=== PATIENT | female | born 1960 | race Caucasian/White ===

== ENCOUNTER 2023-08-06 17:45 | Emergency (ER) | payer OTHER, SELFPAY ==
[2023-08-06 18:02] VITALS: BP 130/76; PULSE 81; RESP 16; TEMP 36.9; O2SAT 100
--- NOTE | 2023-08-06 18:29 | ED.URI ---
HPI - URI/Sore Throat General Chief Complaint: Upper Respiratory Infection Stated Complaint: Sore Throat History of Present Illness HPI Narrative: Pt is a 49 y/o female, presents to with one month hx of sore throat, painful when swallowing, treated three weeks ago with Zithromax and steroids after she was negative for strep. She notes her throat pain improved briefly but returned a few days later. She denies associated rhinorrhea, post nasal drip or cough. She does endorse hx of GERD however, she does not feel this has caused her symptoms. She is requesting a COV and influenza screen in addition to strep testing today. Related Data Home Medications Medication Instructions Recorded Confirmed amlodipine 08/06/23 chlorthalidone 08/06/23 losartan 08/06/23 Allergies Allergy/AdvReac Type Severity Reaction Status Date / Time No Known Allergies Allergy Verified 08/06/23 18:02 Review of Systems Constitutional: Constitutional: Reports as per HPI and Reports no additional constitutional complaints ENT: Reports system reviewed and no additional complaints, except as documented and Reports as per HPI Exam Const: General: healthy appearing, no acute distress and alert Nutritional Appearance: obese Limitations: no limitations HENMT: Head: normal to inspection Ears: external ears normal and TM's normal bilaterally Face/Nose/Sinus: Normal external nose present and Normal nares present Face and sinus: normal facial exam Mouth: Yes Normal oral and palatal mucosa present and Yes lip normal Throat: uvula midline (mild erythema to uvula. no pharyngeal erythema or exudate. ) Eyes: Conjunctivae: conjunctivae normal Pupils: Equal, round and reactive pupils present EOM: EOMs intact bilaterally Neck: Neck: normal visual inspection, no lymphadenopathy and no meningeal signs Resp: Effort & Inspection: normal respiratory effort Auscultation: clear to auscultation bilaterally Cardio: Rate: regular rate Rhythm: regular rhythm Skin: General skin exam: normal color Rashes: no rashes Neuro: General: patient oriented x3, moves all extremities, no meningeal signs, no focal motor deficits and CN's II-XI intact bilaterally Cranial nerves: Yes Nystagmus not present Speech: normal speech Gait exam (Neuro): Normal gait present Extrem: General: normal to inspection Psych: Mental Status: mental status grossly normal Affect: normal affect Course Course Emergency Course: STREP, INFLUENZA AND COV screenings ordered. Negative for all. Exam is benign, suspect GERD may be cause of persistent sore throat. Will treat with Protonix, FU with ENT and/or PCP/GI if symptoms are not improving in one week Level of Care: Express Care Visit ([id number]) Vital Signs Vital signs: Vital Signs Temperature 36.9 C 08/06/23 18:02 Pulse Rate 81 08/06/23 18:02 Respiratory Rate 16 08/06/23 18:02 Blood Pressure 130/76 08/06/23 18:02 Pulse Oximetry 100 08/06/23 18:02 Oxygen Delivery Room Air 08/06/23 18:02 Temperature 36.9 C 08/06/23 18:02 Pulse Rate 81 08/06/23 18:02 Respiratory Rate 16 08/06/23 18:02 Blood Pressure 130/76 08/06/23 18:02 Pulse Oximetry 100 08/06/23 18:02 Oxygen Delivery Room Air 08/06/23 18:02 MDM - URI/Sore Throat MDM Narrative Medical decision making narrative: strep covid and influenza negative. suspect acid reflux with esophagitis. Plan to treat with Protonix, FU with ENT or PCP for GI referral as indicated. Pt is agreeable with plan. Differential Diagnosis Differential diagnosis: Likely upper respiratory infection, viral infection, pharyngitis and other (GERD) Lab Data Labs: Strep Screen Presumptive Negative *(Reference Range: Negative)* Discharge Plan Discharge Clinical Impression: Odynophagia Patient Disposition: Home, Self-Care Condition: Stable Instructions: Antibiotic Form, Pharyngitis (ED), GERD (Gas
== END 2023-08-06 19:18 | disposition home or self-care (01) ==
PROVIDERS: Emergency Provider Nurse Practitioner Family; PCP Family Medicine
DX: R13.10 Dysphagia, unspecified (principal); K21.9 Gastro-esophageal reflux disease without esophagitis; Z20.822 Contact with and (suspected) exposure to COVID-19
CPT/HCPCS: 87081; 87426; 87804; 87880; 99213; C9803; G0463